=== PATIENT | male | born 1955 | race Caucasian/White ===

== ENCOUNTER → 2016-05-31 | Outpatient (CLI) | payer BC ==
[~2016-05-31] MED LIST: AMBIEN 10MG10 MG PO; FLONASE NASAL S16 GM NS; HYZAAR 12.5 MG-1 TAB PO; NASALCROM5.2 MG/ACT NS; PROCTOZONE-HC2.5% RC; PROSCAR 5MG5 MG PO; ULTRAM 50MG TAB50 MG PO; ZOCOR 40MG40 MG PO
== END ==
LOC: BHSO 13:01
DX: F31.81 Bipolar II disorder (principal)

== ENCOUNTER → 2016-08-16 | Outpatient (CLI) | payer BC | LOC: BHSO 10:45 | DX: F31.74 Bipolar disorder, in full remission, most recent episode manic (principal) ==

== ENCOUNTER → 2016-10-31 | Outpatient (CLI) | payer BC | LOC: BHSO 13:42 | DX: F31.73 Bipolar disorder, in partial remission, most recent episode manic (principal) ==

== ENCOUNTER → 2016-11-11 | Outpatient (CLI) | payer BC | LOC: COL.PUL 08:00 | DX: R05 Cough (principal) ==

== ENCOUNTER → 2020-04-05 | Outpatient (CLI) | payer BC | LOC: COL.VAS 12:48 | DX: I73.9 Peripheral vascular disease, unspecified (principal) ==

== ENCOUNTER → 2021-05-14 | Outpatient (RCR) | payer MEDICARE | END | disposition home or self-care (01) | LOC: WSST | DX: R41.3 Other amnesia (principal) ==

== ENCOUNTER 2021-06-04 08:45 | Outpatient (RCR) | payer MEDICARE | END 2021-06-11 | disposition home or self-care (01) | LOC: WSST | DX: R41.3 Other amnesia (principal) ==

== ENCOUNTER → 2022-01-01 | Outpatient (CLI) | payer MEDICARE | LOC: COL.RAD 07:41 | DX: M25.552 Pain in left hip (principal) | CPT/HCPCS: J3301; Q9967 ==

== ENCOUNTER → 2022-06-06 | Outpatient (CLI) | payer MEDICARE | LOC: COL.RAD 11:57 | DX: G62.9 Polyneuropathy, unspecified (principal); M54.17 Radiculopathy, lumbosacral region; R27.0 Ataxia, unspecified | CPT/HCPCS: A9575 ==

== ENCOUNTER → 2023-07-10 | Outpatient (CLI) | payer MEDICARE | LOC: COL.RAD 09:52 | DX: M51.16 Intervertebral disc disorders with radiculopathy, lumbar region (principal); M51.17 Intervertebral disc disorders with radiculopathy, lumbosacral region; M47.26 Other spondylosis with radiculopathy, lumbar region; M43.16 Spondylolisthesis, lumbar region ==